=== PATIENT | female | born 1995 | race Caucasian/White ===

== ENCOUNTER 2016-09-11 21:35 | Emergency (ER) | payer BC ==
[~2016-09-11] VITALS: Ht 163.8 cm; Wt 57.6 kg
[2016-09-11 21:43] VITALS: Ht 163.8 cm; Wt 57.6 kg
[2016-09-11] MEDS ORDERED: FAMOTIDINE IV INJ 20 MG in DEXTROSE 5% 100ML 100 ML IV STA (21:59)
[2016-09-11] MEDS ORDERED: METHYLPREDNISOLONE 125 MG VIAL IV STA (21:59)
[2016-09-11] MEDS ORDERED: DiphenhydrAMINE HCL 50 MG/ML VIAL IV STA (21:59)
[2016-09-11] MEDS ORDERED: FAMOTIDINE 20MG/102 ML D5W ONE (22:19)
[2016-09-11 22:31] VITALS: O2SAT 99
[2016-09-11] MEDS ORDERED: PRED50TA PO (22:53)
[2016-09-11] MEDS ORDERED: EPINEPHRINE ADULT AUTO-INJECT 0.3 MG SYR IM ONE (23:00)
--- NOTE | 2016-09-11 23:01 | EMERGENCY ROOM VISIT NOTE ---
History First contact with patient: 21:53 Chief Complaint: ALLERGIC REACTION Stated Complaint: ALERGIC REACTION, WC History of Present Illness The patient is a 21 year old female who presents to the Emergency Room with complaints of allergic reaction for the past few hours. Patient states she started with some itchiness to her face and tingling to her lips and facial swelling earlier today. She went to health services and they told her to take Benadryl. Symptoms got worse and she came here. Unsure of trigger. No new foods soaps or detergents. Patient denies chest pain, dyspnea, feeling of impending doom, fever, chills, abdominal pain, vomiting, diarrhea. Review of Systems See HPI for pertinent positives & negatives. A total of 10 systems reviewed and were otherwise negative. Past Medical/Surgical History Anxiety, depression Social History Smoking Status: Current Some Day Smoker Drug Use: none Occupation Status: [employer] student Current/Historical Medications Scheduled Prednisone (Prednisone), 50 MG PO DAILY Physical Exam Vital Signs Date Time Temp Pulse Resp B/P Pulse Ox O2 Delivery O2 Flow Rate FiO2 09/11/16 22:38 97 09/11/16 22:31 99 Room Air 09/11/16 21:43 36.6 87 18 141/87 95 Room Air Physical Exam VITALS: Vitals are noted on the nurse's note and reviewed by myself. Vital signs stable. GENERAL: Pleasant female, in no acute distress, nondiaphoretic, well-developed well-nourished. SKIN: Face is slightly erythematous and edematous concerning for allergic reaction with no airway compromise The rest of the skin was without rashes, erythema, edema, or bruising. There is no tenting of the skin. Capillary reflex less than 2 seconds. HEAD: Normocephalic atraumatic. EARS: External auditory canals clear, tympanic membranes pearly ibarra without erythema or effusion bilaterally. EYES: Pupils equal round and reactive to light and accommodation. Conjunctivae without injection, sclerae without icterus. Extraocular movements intact. NOSE: Patent, turbinates without inflammation or discharge. No sinus tenderness. MOUTH: Mucous membranes moist. . Pharynx without erythema or exudate. Uvula midline. Airway patent. Tongue does not deviate. NECK: Supple without nuchal rigidity. No lymphadenopathy. No thyromegaly. Cervical spine is nontender. No JVD. HEART: Regular rate and rhythm without murmurs gallops or rubs. LUNGS: Clear to auscultation bilaterally without wheezes, rales or rhonchi. No dullness to percussion. No retractions or accessory muscle use. ABDOMEN: Positive bowel sounds x 4. Normal tympanic percussion. Soft, nontender, without masses or organomegaly. Miranda sign negative. No guarding or rebound tenderness. MUSCULOSKELETAL: No muscle atrophy, erythema, or edema noted. NEURO: Patient was alert and oriented to person place and time. Normal sensation to light and sharp touch. No focal neurological deficits. Medical Decision & Procedures Medications Administered Medications (Trade) Dose Ordered Sig/Raul Route Start Time Stop Time Status Last Admin Dose Admin Methylprednisolone Sodium Succinate (Solu-Medrol IV) 125 mg NOW STAT IV 09/11/16 21:59 09/11/16 22:01 DC 09/11/16 21:59 125 MG Diphenhydramine HCl 50 mg 50 mg NOW STAT IV 09/11/16 21:59 09/11/16 22:01 DC 09/11/16 22:23 50 MG Famotidine/ Dextrose (Pepcid IV Inj/ D5 100ml) 102 ml @ 200 mls/hr NOW STAT IV 09/11/16 21:59 09/11/16 22:29 DC 09/11/16 21:59 200 MLS/HR ED Course Prior records/ancillary studies reviewed. Triage Nursing notes reviewed. Additional history obtained from friend The patient's history was concerning for possible allergic reaction. Differential diagnosis: Etiologies such as allergic reaction, anaphylaxis, urticaria, Tucker-Esequiel syndrome, toxic epidermal necrolysis, erythema multiforme, cellulitis, as well as others were entertained. Physical examination: As above. ER treatment provided: Continuous cardiac monitoring Benadryl 50 mg IV Pepcid 20 mg IV Decadron 10 mg IV On reassessment the patient felt better. Diagnostic interpretation by me: Deferred It appears the patient had an allergic reaction. The above treatment did well to reverse the symptoms. After prolonged monitoring and frequent reassessments the patient did very well and symptoms resolved. The patient was counseled on the spectrum of this disease process and told to avoid potential triggers. I gave my usual and customary discussion regarding this issue. By the evaluation outlined above emergent etiologies such as recurring anaphylaxis, anaphylatic shock, airway compromise, Tucker-Esequiel syndrome, toxic epidermal necrolysis, erythema multiforme, infectious etiologies, as well as others were deemed relatively unlikely. The pt informed about the findings as listed above. All questions were answered and pleased with the treatment. Return instructions were outlined and the patient was discharged in stable condition. Outpatient prescription management: EpiPen prednisone Referral: The patient was referred back to primary care physician for follow-up in 2-3 days for a recheck of the current condition. or The patient was referred to Allergy/Immunology for further evaluation. Medical Decision As above Impression Primary Impression: Allergic reaction Departure Information Dispostion Home / Self-Care Condition GOOD Prescriptions Prednisone (Prednisone) 50 Mg Tab 50 MG PO DAILY for 4 Days, #4 TAB Prov: María Elena Iraheta .DC 09/11/16 Forms HOME CARE DOCUMENTATION FORM, School Instructions, Return To School: 1 day IMPORTANT VISIT INFORMATION Patient Instructions [facility], ED Allergic Reaction General Other Additional Instructions DO NOT drive, drink alcohol, operate machinery, or perform dangerous activities today. You were given medications in the ER that can affect your ability to safely function or operate a vehicle. Epi-Pen: Use one injection as instructed for severe allergic reactions associated with shortness of breath, difficulty breathing, or throat or tongue swelling. If you use this injection call 911 or proceed immediately to the nearest Emergency Room. Prednisone 50mg: Once daily until the prescription is finished. It is best to take this earlier in the day as some patients note occasional difficulty falling asleep when taken in the late evening. Diphenhydramine(Benadryl) 25mg: use 25 to 50 mg every six hours for swelling, itching, or hives. This medication is sedating and will cause drowsiness. Avoid alcohol, operating machinery or dangerous equipment, working on ladders or roofs, DRIVING, or situations where being under the influence may be dangerous. Zantac 75: Take two pills twice a day along with Benadryl as needed for swelling , itching, or hives. Most people know this for its affect on the stomach, but it also acts similar to, but less potent than Benadryl for allergic reactions. Both the Benadryl and the Zantac are available [id number]. Continue current medications. Return to the emergency department for worsening of your rash, swelling of your face, lips, tongue, or throat, difficulty breathing, vomiting, or as needed. Follow-up with your primary care physician in 2 to 3 days for a recheck of your current condition. School Instructions Return To School: 1 day Problem Qualifiers Primary Impression: Allergic reaction Encounter type: initial encounter Qualified Codes: T78.40XA - Allergy, unspecified, initial encounter
[2016-09-11 23:17] VITALS: BP 134/112; PULSE 89; TEMP 36.6; O2SAT 99
== END 2016-09-11 23:18 | disposition home or self-care (01) ==
LOC: C.EDB 21:39 → C.EDC 23:18
DX: T78.40XA Allergy, unspecified, initial encounter (principal); X58.XXXA Exposure to other specified factors, initial encounter; F17.200 Nicotine dependence, unspecified, uncomplicated